=== PATIENT | female | born 1985 | race Hispanic/Latino ===

== ENCOUNTER 2023-01-10 11:20 | Emergency (ER) | payer OTHER, SELFPAY ==
[2023-01-10 11:47] LABS: Hematocrit 35.1 % (36.0-45.0); Lymphocytes % 11.5 % (15.3-44.8); MPV 7.5 fL (7.6-11.3); Platelets 300 thou/uL (152-406); RBC Red Blood Cell Count 3.94 M/uL (3.86-4.86)
[2023-01-10] MEDS ORDERED: FAMOTIDINE 20 MG/2 ML VIAL IV ONE (11:47)
[2023-01-10] MEDS ORDERED: ONDANSETRON 4 MG/2 ML VIAL ONE (11:47)
[2023-01-10] MEDS ORDERED: NA CHLORIDE 0.9% 1,000 ML ONE (11:48)
[2023-01-10 11:53] LABS: Specific Gravity 1.029 (1.005-1.030)
[2023-01-10 12:04] LABS: Albumin 3.9 g/dL (3.4-5.0); Bilirubin Total 0.2 mg/dL (0.2-1.0); Potassium 3.4 mEq/L (3.5-5.1); Protein, Total 7.3 g/dL (6.4-8.2); Specific Gravity 1.029 (1.005-1.030); Urine Bacteria Loaded /HPF (<20); Urine Bilirubin NEGATIVE (Negative); Urine Blood 3+ (OVER) (Negative); Urine Clarity Extremely Turbid (Clear); Urine Color Brown (Yellow); Urine Glucose NEGATIVE (Negative); Urine Mucus Slight /HPF (None Seen); Urine Protein 2+ (Negative); Urine RBC >50 /HPF (None Seen); Urine Urobilinogen Normal (Normal)
[2023-01-10] MEDS ORDERED: MORPHINE 4 MG/ML SYR ONE (13:40)
[2023-01-10] MEDS ORDERED: NITROFURAN MACRO 100 MG CAP PO ONE (13:40)
--- NOTE | 2023-01-10 15:18 | RAD REPORT ---
EXAM DESCRIPTION: CT - Abdomen Pelvis W Contrast - 01/10/2023 2:22 pm CLINICAL HISTORY: ABD PAIN COMPARISON: No comparisons TECHNIQUE: Thin cut axial CT imaging of the abdomen and pelvis was performed following intravenous a dministration of Isovue 300. Multiplanar reformats were generated and reviewed. All CT scans are performed using dose optimization technique as appropriate and may include automated exposure control or mA/KV adjustment according to patient size. FINDINGS: No suspicious findings in the lung bases. The liver, spleen, adrenal glands, and pancreas show no suspicious findings. Gallbladder and biliary tree are also without suspicious finding. Symmetric renal function is seen with no hydronephrosis or suspicious renal mass. Hyperdense material layering dependently in the fundus of the stomach. No dilated bowel loops or christiano l wall thickening. No free air, free fluid or inflammatory stranding. Appendix is unremarkable. No he rnia, mass or bulky lymphadenopathy. The urinary bladder is without significant finding. No suspicious bony findings. Disc herniation noted at L1-2, not well evaluated. IMPRESSION: No acute intra-abdominal process. Hyperdense material layering dependently in the fundus of the stomach. This is indeterminate, may rel ate to hyperdense ingested material, residual contrast from prior administration, or possibly extrava sated contrast in the setting of bleeding within the esophageal or gastric lumen. Please correlate fo r presence of melena.
--- NOTE | 2023-01-10 15:34 | EDPHYS ---
Physician Documentation [facility] Name: Jackie Bucio Age: 37 yrs Sex: Female : 1985 Arrival Date: 01/10/2023 Time: 11:20 Bed 7 Private MD: ED Physician Roxana Stewart HPI: 01/10 11:31 This 37 yrs old Female presents to ER via EMS with complaints of ci Nausea/Vomiting, Other. 12:52 Patient is a 37-year-old female who presents to the ED with chief complaint of nausea ci vomiting that began last night after she drank 50 ounces of moonshine. She reports abdominal pain while she was vomiting but no current abdominal pain. She denies urinary symptoms. Patient is currently on her period, denies vaginal bleeding, vaginal discharge. She denies any abdominal surgeries.. Historical: - Allergies: 11:23 PENICILLINS; ld1 11:23 Sulfa (Sulfonamide Antibiotics); ld1 11:23 Zithromax; ld1 11:23 ACETAMINOPHEN; ld1 - Home Meds: 11:23 None [Active]; ld1 - PMHx: 11:23 None; ld1 - PSHx: 11:23 None; ld1 - Immunization history:: Adult Immunizations up to date. - Social history:: Smoking status: Patient denies any tobacco usage or history of. Patient/guardian denies using alcohol. ROS: 17:00 Constitutional: Negative for fever, chills, and weight loss, Cardiovascular: Negative ci for chest pain, palpitations, and edema, Respiratory: Negative for shortness of breath, cough, wheezing, and pleuritic chest pain, Abdomen/GI: Positive for abdominal pain, nausea, vomiting : Negative for injury, bleeding, discharge, and swelling, Skin: Negative for injury, rash, and discoloration, Neuro: Negative for headache, weakness, numbness, tingling, and seizure. Exam: 17:00 Constitutional: This is a well developed, well nourished patient who is awake, alert, ci and in no acute distress. Head/Face: Normocephalic, atraumatic. Eyes: Pupils equal round and reactive to light, extra-ocular motions intact. Lids and lashes normal. Conjunctiva and sclera are non-icteric and not injected. Cornea within normal limits. Periorbital areas with no swelling, redness, or edema. ENT: Nares patent. No nasal discharge, no septal abnormalities noted. Tympanic membranes are normal and external auditory canals are clear. Oropharynx with no redness, swelling, or masses, exudates, or evidence of obstruction, uvula midline. Mucous membranes moist. Neck: Trachea midline, no thyromegaly or masses palpated, and no cervical lymphadenopathy. Supple, full range of motion without nuchal rigidity, or vertebral point tenderness. No Meningismus. Chest/axilla: Normal chest wall appearance and motion. Nontender with no deformity. No lesions are appreciated. Cardiovascular: Regular rate and rhythm with a normal S1 and S2. No gallops, murmurs, or rubs. No JVD. No pulse deficits. Respiratory: Lungs have equal breath sounds bilaterally, clear to auscultation and percussion. No rales, rhonchi or wheezes noted. No increased work of breathing, no retractions or nasal flaring. Abdomen/GI: Soft, with normal bowel sounds. No distension or tympany. +moderate TTP to epigastrium. No guarding or rebound. No evidence of tenderness throughout. Back: No spinal tenderness. No costovertebral tenderness. Full range of motion. Skin: Warm, dry with normal turgor. Normal color with no rashes, no lesions, and no evidence of cellulitis. MS/ Extremity: Pulses equal, no cyanosis. Neurovascular intact. Full, normal range of motion. Neuro: Awake and alert, GCS 15, oriented to person, place, time, and situation. Cranial nerves II-XII grossly intact. Motor strength 5/5 in all extremities. Sensory grossly intact. Cerebellar exam normal. Normal gait. Psych: Awake, alert, with orientation to person, place and time. Behavior, mood, and affect are within normal limits. Vital Signs: 11:21 BP 139 / 103; Pulse 65; Resp 18; Temp 97.4(O); Pulse Ox 100% on R/A; Weight 68.04 kg; ld1 Height 5 ft. 2 in. ; Pain 7/10; 11:42 BP 139 / 103; Pulse 52; Resp 16; Pulse Ox 100% ; ko1 12:24 BP 141 / 84; Pulse 50; Resp 18; Pulse Ox 96% ; ko1 15:00 BP 161 / 80; Pulse 59; Resp 18; Pulse Ox 100% on R/A; ld1 11:21 Body Mass Index 27.44 (68.04 kg, 157.48 cm) ld1 11:21 Pain Scale: Adult ld1 MDM: 11:22 Patient medically screened. ci 12:00 Data reviewed: vital signs, nurses notes, lab test result(s), amylase and lipase, Beta ci HCG: electrolytes, hepatic panel, urinalysis, radiologic studies, CT scan. Historians other than the Patient: EMS: . Spouse/Significant Other: . 12:29 ED course: UA shows UTI, will start on antibiotics.. ci 13:00 Differential diagnosis: Nonspecific abd pain, gastritis, cholecystitis, pancreatitis, ci appendicitis, viral gastroenteritis, alcohol poisoning, bowel obstruction, bowel perforation. 17:00 Response to treatment: the patient's symptoms have resolved after treatment, the ci patient's condition has returned to base line, the patient is now symptom free. 01/10 11:31 Order name: CBC with Diff; Complete Time: 12:28 ci 01/10 11:31 Order name: CMP; Complete Time: 12:28 ci 01/10 11:31 Order name: Lipase; Complete Time: 12:28 ci 01/10 11:31 Order name: Test, Urine; Complete Time: 12:28 ci 01/10 11:31 Order name: Urinalysis w/ reflexes; Complete Time: 12:28 ci 01/10 12:29 Interpretation: Abnormal: URBC >50; UWBC 20-50; UESTR 250. ci 01/10 12:07 Order name: Urine Culture EDMT 01/10 13:15 Order name: CT Abd/Pelvis - IV Contrast Only; Complete Time: 15:32 ci 01/10 11:31 Order name: IV Saline Lock; Complete Time: 11:37 ci 01/10 11:31 Order name: Labs collected and sent; Complete Time: 11:37 ci Administered Medications: 11:53 Drug: NS 0.9% IV 1000 ml Route: IV; Rate: 1 bolus; Site: right antecubital; ld1 11:53 Drug: Famotidine IVP 20 mg Route: IVP; Site: right antecubital; ld1 11:53 Drug: Ondansetron IVP 4 mg Route: IVP; Site: right antecubital; ld1 13:30 Drug: Macrobid PO 100 mg Route: PO; ko1 13:35 Drug: morphine IVP or IV 4 mg Route: IVP; Infused Over: 4 mins; Site: right antecubital;ko1 Disposition Summary: 01/10/23 15:34 Discharge Ordered Location: Home ci Condition: Stable ci Diagnosis - Abdominal pain, unspecified ci - Nausea with vomiting, unspecified ci - UTI/ Urinary tract infection, site not specified ci - Elevated blood-pressure reading, without diagnosis of hypertension ci Followup: ci - With: Private Physician - When: 1 - 2 days - Reason: Recheck today's complaints, Re-evaluation by your physician Discharge Instructions: - Discharge Summary Sheet ci - Abdominal Pain, Adult ci - Hypertension, Adult ci - Nausea and Vomiting, Adult ci - Urinary Tract Infection, Adult ci Forms: - Medication Reconciliation Form ci - Thank You Letter ci - Antibiotic Education ci - Prescription Opioid Use ci - Patient Portal Instructions ci - Leadership Thank You Letter ci Prescriptions: - Macrobid 100 mg Oral Capsule - take 1 capsule by ORAL route every 12 hours for 7 days; 14 capsule; Refills: 0, ci Product Selection Permitted Signatures: Dispatcher [employer] EDQueenie Montez RN RN ld1 Myrna Moncada RN RN ko1 Roxana Stewart ci
--- NOTE | 2023-01-10 15:34 | ER ---
Nurse's Notes [facility] Name: Jackie Bucio Age: 37 yrs Sex: Female : 1985 Arrival Date: 01/10/2023 Time: 11:20 Bed 7 Private MD: Diagnosis: Abdominal pain, unspecified;Nausea with vomiting, unspecified;UTI/ Urinary tract infection, site not specified;Elevated blood-pressure reading, without diagnosis of hypertension Presentation: 01/10 11:21 Chief complaint: EMS states: toned out to patient home for nausea and vomiting, ld1 abdominal pain since 2200 last night. Pt reports drinking two stacie jars of banana pudding moonshine - began to vomit at 2200. Coronavirus screen: At this time, the client does not indicate any symptoms associated with coronavirus-19. Ebola Screen: No symptoms or risks identified at this time. Initial Sepsis Screen: Does the patient meet any 2 criteria? No. Patient's initial sepsis screen is negative. Does the patient have a suspected source of infection? No. Patient's initial sepsis screen is negative. Risk Assessment: Do you want to hurt yourself or someone else? Patient reports no desire to harm self or others. Onset of symptoms was January 10, 2023. 11:21 Method Of Arrival: EMS: [facility] ld1 11:21 Acuity: SURJIT 3 ld1 Triage Assessment: 11:23 General: Appears in no apparent distress. comfortable, Behavior is calm, cooperative, ld1 appropriate for age. Pain: Complains of pain in abdomen Pain does not radiate. Pain currently is 7 out of 10 on a pain scale. Quality of pain is described as crampy. EENT: No signs and/or symptoms were reported regarding the EENT system. Neuro: Level of Consciousness is awake, alert, obeys commands, Oriented to person, place, time, situation. Cardiovascular: Capillary refill < 3 seconds Patient's skin is warm and dry. Rhythm is sinus rhythm. Respiratory: Airway is patent Respiratory effort is even, unlabored. GI: Abdomen is flat, non-distended, Reports lower abdominal pain, upper abdominal pain, nausea, vomiting. : No signs and/or symptoms were reported regarding the genitourinary system. Derm: No signs and/or symptoms reported regarding the dermatologic system. Musculoskeletal: No signs and/or symptoms reported regarding the musculoskeletal system. Historical: - Allergies: 11:23 PENICILLINS; ld1 11:23 Sulfa (Sulfonamide Antibiotics); ld1 11:23 Zithromax; ld1 11:23 ACETAMINOPHEN; ld1 - Home Meds: 11:23 None [Active]; ld1 - PMHx: 11:23 None; ld1 - PSHx: 11:23 None; ld1 - Immunization history:: Adult Immunizations up to date. - Social history:: Smoking status: Patient denies any tobacco usage or history of. Patient/guardian denies using alcohol. Screenin:25 [facility] ED Fall Risk Assessment (Adult) History of falling in the last 3 months, ld1 including since admission No falls in past 3 months (0 pts). Abuse screen: Denies threats or abuse. Denies injuries from another. Nutritional screening: No deficits noted. Nutritional screening: On. Tuberculosis screening: No symptoms or risk factors identified. Assessment: 11:25 Reassessment: See triage assessment. GI: Abdomen is round non-distended, Reports ld1 nausea, vomiting. 15:00 Reassessment: Patient appears in no apparent distress at this time. No changes from ld1 previously documented assessment. Patient and/or family updated on plan of care and expected duration. Pain level reassessed. Vital Signs: 11:21 BP 139 / 103; Pulse 65; Resp 18; Temp 97.4(O); Pulse Ox 100% on R/A; Weight 68.04 kg; ld1 Height 5 ft. 2 in. ; Pain 7/10; 11:42 BP 139 / 103; Pulse 52; Resp 16; Pulse Ox 100% ; ko1 12:24 BP 141 / 84; Pulse 50; Resp 18; Pulse Ox 96% ; ko1 15:00 BP 161 / 80; Pulse 59; Resp 18; Pulse Ox 100% on R/A; ld1 11:21 Body Mass Index 27.44 (68.04 kg, 157.48 cm) ld1 11:21 Pain Scale: Adult ld1 ED Course: 11:21 Patient arrived in ED. ld1 11:22 Roxana Stewart is Attending Physician. ci 11:22 Roxana Stewart is Attending Physician. ci 11:23 Triage completed. ld1 11:23 Arm band placed on right wrist. ld1 11:25 Patient has correct armband on for positive identification. Placed in gown. Bed in low ld1 position. Call light in reach. Side rails up X2. playground monitor on. Pulse ox on. NIBP on. Door closed. Noise minimized. Warm blanket given. 11:25 No provider procedures requiring assistance completed. Maintain EMS IV. Dressing ld1 intact. Good blood return noted. Site clean \T\ dry. Gauge \T\ site: 20G RAC. 11:37 CBC with Diff Sent. ld1 11:37 CMP Sent. ld1 11:37 Lipase Sent. ld1 11:37 Test, Urine Sent. ld1 11:37 Urinalysis w/ reflexes Sent. ld1 14:24 CT Abd/Pelvis - IV Contrast Only In Process Unspecified. EDWA 15:45 Myrna Moncada, RN is Primary Nurse. ko1 15:46 Provided Education on: na. ko1 15:46 IV discontinued, intact, bleeding controlled, No redness/swelling at site. Pressure ko1 dressing applied. Administered Medications: 11:53 Drug: NS 0.9% IV 1000 ml Route: IV; Rate: 1 bolus; Site: right antecubital; ld1 11:53 Drug: Famotidine IVP 20 mg Route: IVP; Site: right antecubital; ld1 11:53 Drug: Ondansetron IVP 4 mg Route: IVP; Site: right antecubital; ld1 13:30 Drug: Macrobid PO 100 mg Route: PO; ko1 13:35 Drug: morphine IVP or IV 4 mg Route: IVP; Infused Over: 4 mins; Site: right antecubital;ko1 Medication: 11:25 VIS not applicable for this client. ld1 Outcome: 15:34 Discharge ordered by . ci 15:46 Discharged to home ambulatory, with family. ko1 15:46 Condition: stable 15:46 Discharge instructions given to patient, family, Instructed on discharge instructions, follow up and referral plans. no drinking with medication, medication usage, benefits of quitting smoking, Demonstrated understanding of instructions, follow-up care, medications, Prescriptions given X 1. 15:47 Patient left the ED. ko1 Signatures: Dispatcher [employer] EDWA Queenie Barba RN RN ld1 Myrna Moncada, RN RN ko1 [email or web address], Roxana ci
[2023-01-10 15:53] VITALS: TEMP 97.4
[2023-01-10 15:58] VITALS: BP 161/80; O2SAT 100
== END 2023-01-10 15:47 | disposition home or self-care (01) ==
LOC: ER 11:20
DX: N39.0 Urinary tract infection, site not specified (principal); R03.0 Elevated blood-pressure reading, without diagnosis of hypertension; R10.9 Unspecified abdominal pain
CPT/HCPCS: 36415; 74177; 80053; 81001; 81025; 83690; 85025; 87077; 87086; 87088; 87186; 96374; 96375; 99285; J2405; J7030; Q9967

== ENCOUNTER 2023-08-13 14:16 | Emergency (ER) | payer OTHER ==
[2023-08-13 14:52] LABS: Absolute Basophils 0.1 K/uL (0-0.5); Absolute Eosinophils 0.1 K/uL (0-0.5); Absolute Lymphocytes (CBC) 2.1 K/uL (0.7-4.9); Absolute Monocytes 0.6 K/uL (0.1-1.3); Absolute Neutrophil 8.2 K/uL (1.8-8.0); Basophils % 0.6 % (0-1.3); Eosinophils % 0.7 % (0-4.4); Hematocrit 33.7 % (36.0-45.0); Hemoglobin 11.1 g/dL (12.0-15.0); Lymphocytes % 18.9 % (15.3-44.8); MCH 29.1 pg (27.0-35.0); MCHC 32.9 g/dL (32.0-36.0); MCV 88.4 fL (80-100); MPV 7.5 fL (7.6-11.3); Monocytes % 5.7 % (3.3-12.3); Neutrophils % 74.1 % (41.7-73.7); Platelets 347 thou/uL (152-406); RBC Red Blood Cell Count 3.82 M/uL (3.86-4.86); Red Cell Distribution Width 14.1 % (12.1-15.2)
[2023-08-13 15:19] LABS: ALT/SGPT 27 U/L (13-56); AST/SGOT 13 U/L (15-37); Albumin 3.5 g/dL (3.4-5.0); Albumin/Globulin Ratio 0.9 (1.1-1.8); Alkaline Phosphatase 91 U/L (45-117); Anion Gap 3.7 mEq/L (5.0-15.0); BUN Blood Urea Nitrogen 13 mg/dL (7-18); Bicarbonate 29 mEq/L (21-32); Bilirubin Total 0.2 mg/dL (0.2-1.0); Globulin 3.7 g/dL (2.3-3.5); Glomerular Filtration Rate 116 ml/min (=/>90); Glucose Level 110 mg/dL (74-106); Magnesium 2.3 mg/dL (1.6-2.4); NT PRO-BNP 25 pg/mL (<125); Potassium 3.7 mEq/L (3.5-5.1); Protein, Total 7.2 g/dL (6.4-8.2); Sodium Level 141 mEq/L (136-145); Troponin High Sensitivity 3.1 pg/mL (<58.9)
--- NOTE | 2023-08-13 15:19 | RAD REPORT ---
EXAM DESCRIPTION: CT - Chest For Pe Angio - 08/13/2023 3:05 pm CLINICAL HISTORY: Chest pain COMPARISON: None. TECHNIQUE: Dynamically enhanced axial 3 mm thick images of the chest were obtained during administra tion of 100 mL Isovue 370 IV contrast. Coronal and oblique reconstruction images were generated and r eviewed. Exam utilizes a protocol for optimal evaluation of pulmonary arterial tree. Maximum intensity projections 3D imaging was utilized All CT scans are performed using dose optimization technique as appropriate and may include automated exposure control or mA/KV adjustment according to patient size. FINDINGS: A pulmonary embolus is not seen. A thoracic aortic aneurysm is not noted. A pleural effusion is not seen. A pericardial effusion is not seen. A lung consolidation is not present. IMPRESSION: Negative for a pulmonary embolism.
[2023-08-13 15:24] LABS: Bilirubin Direct < 0.1 mg/dL (0-0.2)
[2023-08-13 15:25] LABS: Bilirubin Indirect, Calculated ND mg/dL (0.2-0.8)
--- NOTE | 2023-08-13 15:31 | EDPHYS ---
Physician Documentation [facility] Name: Jackie Bucio Age: 37 yrs Sex: Female : 1985 Arrival Date: 08/13/2023 Time: 14:16 Bed 16 Private MD: ED Physician Nino Mcdonnell HPI: 08/12 14:49 This 37 yrs old Female presents to ER via Ambulatory with complaints of Rib sp3 pain, Shortness Of Breath. 14:49 37-year-old female with no past medical history and allergies to almost every sp3 antibiotic she has ever had, presents to the ED referred from urgent care for chief complaint cough, shortness of breath and mid left-sided back pain. They were concerned about possible PE. Patient denies any anterior chest pain, prolonged immobilization, oral contraception use, or any other risk factors. She does smoke. On review of systems she denies fever, productive cough, right-sided pain, abdominal pain, nausea, vomiting, diarrhea, syncope but she does endorse near syncope. Review of systems otherwise negative.. CIRCULATION DIRECTOR: 14:48 LMP N/A - , Not mb9 Historical: - Allergies: 14:25 Zithromax; ll1 14:25 ACETAMINOPHEN; ll1 14:25 PENICILLINS; ll1 14:25 Sulfa (Sulfonamide Antibiotics); ll1 14:25 Cephalexin; ll1 14:25 Azithromycin; ll1 14:25 mycins; ll1 14:25 Macrobid; ll1 14:25 Amoxicillin; ll1 - Home Meds: 14:25 None [Active]; ll1 - PMHx: 14:25 None; ll1 - PSHx: 14:25 None; ll1 - Immunization history:: Adult Immunizations up to date. - Infectious Disease History:: Denies. - Social history:: Smoking status: Patient reports the use of cigarette tobacco products, smokes one-half pack cigarettes per day, Patient denies any tobacco usage or history of. ROS: 14:50 Constitutional: Negative for fever, chills, and weight loss, Eyes: Negative for injury, sp3 pain, redness, and discharge, ENT: Negative for injury, pain, and discharge, Neck: Negative for injury, pain, and swelling, Abdomen/GI: Negative for abdominal pain, nausea, vomiting, diarrhea, and constipation, MS/Extremity: Negative for injury and deformity, Skin: Negative for injury, rash, and discoloration, Neuro: Negative for headache, weakness, numbness, tingling, and seizure, Psych: Negative for depression, anxiety, suicide ideation, homicidal ideation, and hallucinations, Allergy/Immunology: Negative for hives, rash, and allergies, Endocrine: Negative for neck swelling, polydipsia, polyuria, polyphagia, and marked weight changes, 14:50 All other systems are negative, Exam: 14:50 Constitutional: This is a well developed, well nourished patient who is awake, alert, sp3 and in no acute distress. Head/Face: Normocephalic, atraumatic. Eyes: Pupils equal round and reactive to light, extra-ocular motions intact. Lids and lashes normal. Conjunctiva and sclera are non-icteric and not injected. Cornea within normal limits. Periorbital areas with no swelling, redness, or edema. ENT: Nares patent. No nasal discharge, no septal abnormalities noted. External auditory canals are clear. Oropharynx with no redness, swelling, or masses, exudates, or evidence of obstruction, uvula midline. Mucous membranes moist. Neck: Trachea midline, no thyromegaly or masses palpated, and no cervical lymphadenopathy. Supple, full range of motion without nuchal rigidity, or vertebral point tenderness. No Meningismus. Chest/axilla: Normal chest wall appearance and motion. Nontender with no deformity. No lesions are appreciated. Cardiovascular: Regular rate and rhythm with a normal S1 and S2. No gallops, murmurs, or rubs. Normal PMI, no JVD. No pulse deficits. Respiratory: Lungs have equal breath sounds bilaterally, clear to auscultation and percussion. No rales, rhonchi or wheezes noted. No increased work of breathing, no retractions or nasal flaring. Abdomen/GI: Soft, non-tender, with normal bowel sounds. No distension or tympany. No guarding or rebound. No evidence of tenderness throughout. Back: No spinal tenderness. No costovertebral tenderness. Full range of motion. Skin: Warm, dry with normal turgor. Normal color with no rashes, no lesions, and no evidence of cellulitis. MS/ Extremity: Pulses equal, no cyanosis. Neurovascular intact. Full, normal range of motion. Neuro: Awake and alert, GCS 15, oriented to person, place, time, and situation. Cranial nerves II-XII grossly intact. Motor strength 5/5 in all extremities. Sensory grossly intact. Cerebellar exam normal. Normal gait. 14:50 ECG was reviewed by the Attending Physician. EKG demonstrates normal sinus rhythm at 66 bpm with normal intervals, normal QRS, normal axis, normal axis ST segments without evidence of acute ischemia. Vital Signs: 14:27 BP 151 / 93; Pulse 82; Resp 17; Temp 98; Pulse Ox 96% ; Weight 72.57 kg; Height 4 ft. ll1 10 in. ; Pain 8/10; 15:33 BP 145 / 87; Pulse 80; Resp 18; Pulse Ox 100% on R/A; mb9 14:27 Body Mass Index 33.44 (72.57 kg, 147.32 cm) ll1 14:27 Pain Scale: Adult ll1 MDM: 14:31 Patient medically screened. 08/12 14:39 Order name: Basic Metabolic Panel; Complete Time: 15:08/12 14:39 Order name: CBC with Diff; Complete Time: 15:08/12 14:39 Order name: LFT's; Complete Time: 15:08/12 14:39 Order name: Magnesium; Complete Time: 15:08/12 14:39 Order name: NT PRO-BNP; Complete Time: 15:08/12 14:39 Order name: Troponin HS; Complete Time: 15:08/12 14:39 Order name: CT Chest For PE Angio; Complete Time: 15:22 08/12 14:39 Order name: EKG; Complete Time: 14:39 08/12 14:39 Order name: Cardiac monitoring; Complete Time: 14:44 08/12 14:39 Order name: EKG - Nurse/Tech; Complete Time: 14:44 08/12 14:39 Order name: IV Saline Lock; Complete Time: 14:44 08/12 14:39 Order name: Labs collected and sent; Complete Time: 14:44 08/12 14:39 Order name: O2 Per Protocol; Complete Time: 14:44 08/12 14:39 Order name: O2 Sat Monitoring; Complete Time: 14:44 sp3 Administered Medications: No medications were administered Disposition Summary: 08/13/23 15:31 Discharge Ordered Notes: Location: Home sp3 Condition: Stable sp3 Diagnosis - Chest pain, unspecified sp3 Followup: sp3 - With: Private Physician - When: Upon discharge from the Emergency Department - Reason: Continuance of care Discharge Instructions: - Discharge Summary Sheet sp3 - Nonspecific Chest Pain, Adult sp3 Forms: - Medication Reconciliation Form sp3 - Thank You Letter sp3 - Antibiotic Education sp3 - Prescription Opioid Use sp3 - Patient Portal Instructions sp3 - Leadership Thank You Letter sp3 - Work release form mb9 Signatures: Dispatcher [employer] Ruddy Valdez RN RN ll1 Nino Mcdonnell MD MD sp3 Sil Arango RN RN mb9
--- NOTE | 2023-08-13 15:31 | ER ---
Nurse's Notes [facility] Name: Jackie Bucio Age: 37 yrs Sex: Female : 1985 Arrival Date: 08/13/2023 Time: 14:16 Bed 16 Private MD: Diagnosis: Chest pain, unspecified Presentation: 08/12 14:27 Chief complaint: Patient states: Cough, congestion for 2 weeks. Went to Urgent Care, ll1 sent here for further evaluation. Gets lightheaded and dizzy at times. L trunk pain with coughing. Coronavirus screen: Client denies travel out of the [place] in the last 14 days. Coronavirus screen: congestion, cough unrelated to allergies, difficulty breathing, headache, Client presents with at least one sign or symptom that may indicate coronavirus-19. Standard/surgical mask placed on the client. Ebola Screen: Patient denies travel to an Ebola-affected area in the 21 days before illness onset. Initial Sepsis Screen: Does the patient meet any 2 criteria? No. Patient's initial sepsis screen is negative. Does the patient have a suspected source of infection? No. Patient's initial sepsis screen is negative. Risk Assessment: Do you want to hurt yourself or someone else? Patient reports no desire to harm self or others. Onset of symptoms was July 31, 2023. 14:27 Method Of Arrival: Ambulatory [facility] 14:27 Acuity: SURJIT 3 ll1 PROJECT MANAGEMENT SPECIALIST: 14:48 LMP N/A - , Not mb9 Historical: - Allergies: 14:25 Zithromax; ll1 14:25 ACETAMINOPHEN; ll1 14:25 PENICILLINS; ll1 14:25 Sulfa (Sulfonamide Antibiotics); ll1 14:25 Cephalexin; ll1 14:25 Azithromycin; ll1 14:25 mycins; ll1 14:25 Macrobid; ll1 14:25 Amoxicillin; ll1 - Home Meds: 14:25 None [Active]; ll1 - PMHx: 14:25 None; ll1 - PSHx: 14:25 None; ll1 - Immunization history:: Adult Immunizations up to date. - Infectious Disease History:: Denies. - Social history:: Smoking status: Patient reports the use of cigarette tobacco products, smokes one-half pack cigarettes per day, Patient denies any tobacco usage or history of. Screenin:48 [facility] ED Fall Risk Assessment (Adult) History of falling in the last 3 months, mb9 including since admission No falls in past 3 months (0 pts) Confusion or Disorientation No (0 pts) Intoxicated or Sedated No (0 pts) Impaired Gait No (0 pts) Mobility Assist Device Used No (0 pt) Altered Elimination No (0 pt) Score/Fall Risk Level 0 - 2 = Low Risk Oriented to surroundings, Maintained a safe environment, Educated pt \T\ family on fall prevention, incl call for assistance when getting out of bed. Abuse screen: Denies threats or abuse. Nutritional screening: No deficits noted. Tuberculosis screening: No symptoms or risk factors identified. Assessment: 14:47 General: Appears in no apparent distress. Behavior is calm, cooperative. Pain: mb9 Complains of pain in chest Pain does not radiate. Pain currently is 7 out of 10 on a pain scale. Quality of pain is described as throbbing, Pain began suddenly. Neuro: Weber Agitation-Sedation Scale (RASS): 0 - Alert and Calm Level of Consciousness is awake, alert, obeys commands, Oriented to person, place, time, situation, Appropriate for age. Cardiovascular: Reports chest pain, shortness of breath, Heart tones S1 S2 present Patient's skin is warm and dry. Rhythm is regular. Respiratory: Reports shortness of breath cough that is Airway is patent Respiratory effort is even, unlabored, Respiratory pattern is regular, symmetrical, Breath sounds are clear bilaterally. GI: Abdomen is round non-distended. : No signs and/or symptoms were reported regarding the genitourinary system. EENT: No signs and/or symptoms were reported regarding the EENT system. Derm: Skin is pink, warm \T\ dry. Musculoskeletal: Range of motion: intact in all extremities. 15:33 Reassessment: Patient appears in no apparent distress at this time. No changes from mb9 previously documented assessment. Patient and/or family updated on plan of care and expected duration. Pain level reassessed. Patient is alert, oriented x 3, equal unlabored respirations, skin warm/dry/pink. Vital Signs: 14:27 BP 151 / 93; Pulse 82; Resp 17; Temp 98; Pulse Ox 96% ; Weight 72.57 kg; Height 4 ft. ll1 10 in. ; Pain 8/10; 15:33 BP 145 / 87; Pulse 80; Resp 18; Pulse Ox 100% on R/A; mb9 14:27 Body Mass Index 33.44 (72.57 kg, 147.32 cm) ll1 14:27 Pain Scale: Adult ll1 ED Course: 14:22 Patient arrived in ED. mr 14:22 Nino Mcdonnell MD is Attending Physician. sp3 14:29 Triage completed. ll1 14:29 Arm band placed on Patient placed in an exam room, on a stretcher. ll1 14:33 Sil Arango, RN is Primary Nurse. mb9 14:44 Basic Metabolic Panel Sent. mb9 14:44 CBC with Diff Sent. mb9 14:44 LFT's Sent. mb9 14:44 Magnesium Sent. mb9 14:44 NT PRO-BNP Sent. mb9 14:44 Troponin HS Sent. mb9 14:48 Placed in gown. Bed in low position. Call light in reach. Side rails up X 1. Client mb9 placed on continuous cardiac and pulse oximetry monitoring. NIBP monitoring applied. heat treatment technician on. 14:48 EKG done, by ED staff, reviewed by Nino Mcdonnell MD. Inserted saline lock: 20 gauge in mb9 right antecubital area, using aseptic technique. 14:49 No provider procedures requiring assistance completed. mb9 15:[address] via wheelchair. mb9 15:07 CT Chest For PE Angio In Process Unspecified. EDMS 15:33 IV discontinued, intact, bleeding controlled, No redness/swelling at site. Pressure mb9 dressing applied. Administered Medications: No medications were administered Medication: 14:48 VIS not applicable for this client. mb9 Outcome: 15:31 Discharge ordered by . sp3 15:39 Discharged to home ambulatory, mb9 15:39 Condition: stable 15:39 Discharge instructions given to patient, Instructed on discharge instructions, follow up and referral plans. Demonstrated understanding of instructions, follow-up care, 15:39 Patient left the ED. mb9 Signatures: Dispatcher [employer] EDFL Sil Bucio, Reg Reg mr AustinRuddy, RN RN ll1 Nino Mcdonnell MD MD sp3 Sil Arango, RN RN mb9 Corrections: (The following items were deleted from the chart) 14:31 14:27 Chief complaint: Patient states: Cough, congestion for 2 weeks. Went to Urgent [facility] Care, sent here for further evaluation. Gets lightheaded and dizzy at times. R trunk pain with coughing. [facility]
[2023-08-13 16:11] VITALS: BP 145/87; TEMP 98; O2SAT 100
== END 2023-08-13 15:39 | disposition home or self-care (01) ==
LOC: ER 14:16
DX: R07.9 Chest pain, unspecified (principal); F17.210 Nicotine dependence, cigarettes, uncomplicated; Z88.0 Allergy status to penicillin; Z88.1 Allergy status to other antibiotic agents; Z88.2 Allergy status to sulfonamides; Z88.3 Allergy status to other anti-infective agents; Z88.6 Allergy status to analgesic agent
CPT/HCPCS: 85025; 80048; 36415; 83735; 80076; 84484; 83880; 71275; 99285; Q9967; 93005